=== PATIENT | male | born 1985 ===

== ENCOUNTER 2017-09-19 07:31 | Outpatient (CLI) | payer BC ==
--- NOTE | 2017-09-19 09:09 | XRay Report ---
RIGHT SHOULDER: Pain. Routine views demonstrate normal bony and soft tissue structures with normal joint alignment of the shoulder. IMPRESSION: Normal study.
== END 2017-09-19 07:32 | disposition home or self-care (01) ==
LOC: SPVIMAG 07:31
PROVIDERS: ATTEND Orthopaedic Surgery
DX: M25.511 Pain in right shoulder (principal)

== ENCOUNTER 2017-09-27 23:10 | Emergency (ER) | payer BC | END 2017-09-27 23:30 | disposition left against medical advice (07) | LOC: ED 23:10 | DX: M25.511 Pain in right shoulder (principal); Z53.21 Procedure and treatment not carried out due to patient leaving prior to being seen by health care provider ==

== ENCOUNTER 2020-08-09 03:45 | Emergency (ER) | payer BC, MEDICARE ==
[2020-08-09 03:57] VITALS: BP 140/96
[2020-08-09] MEDS ORDERED: LIDOCAINE (1%) 10 MG/1 ML VIAL 20 ML MDV INFILTRATI ONE (04:01)
--- NOTE | 2020-08-09 04:19 | Emergency Department Report ---
ED Upper Extremity Inj HPI - General Chief Complaint: Extremity Injury, Upper Stated Complaint: DISLOCATED SHOULDER Time Seen by Provider: 08/09/20 03:52 Source: patient, EMS Mode of arrival: Stretcher Limitations: No Limitations - History of Present Illness Initial Comments: Chief complaint: "My shoulder popped out while playing pool." HPI: This is a 34-year-old male with history of recurrent shoulder dislocations who presents with left shoulder pain and obvious dislocation. He states that his shoulder spontaneously dislocates even in his sleep. However this instance occurred while playing pool. He has severe discomfort. He has limited range of motion. No direct trauma. He plans to undergo corrective surgery through [facility]. He recently had a CT and MRI of the shoulder performed. MD Complaint: Injury to:: left, shoulder -: Sudden Other Extremity Injury: Shoulder: Left Handedness: left Place: other (While playing pool) Improves With: none Worsens With: movement of extremity Context: other (History of recurrent spontaneous dislocations of the left shoulder) Associated Symptoms: denies other symptoms - Related Data Allergies Allergy/AdvReac Type Severity Reaction Status Date / Time No Known Allergies Allergy Unverified 08/09/20 03:53 ED Review of Systems ROS: Stated complaint: DISLOCATED SHOULDER Other details as noted in HPI Comment: All other systems reviewed and negative Constitutional: denies: fever, malaise Cardiovascular: denies: chest pain Gastrointestinal: denies: abdominal pain, nausea, vomiting Neurological: denies: numbness, paresthesias ED Past Medical Hx - Past Medical History Previous Medical History?: No - Surgical History Past Surgical History?: No - Social History Smoking Status: Current Every Day Smoker Substance Use Type: Alcohol, Marijuana, Other ED Physical Exam - General Limitations: No Limitations General appearance: alert, in no apparent distress - Head Head exam: Present: atraumatic, normocephalic - Eye Eye exam: Present: normal appearance - ENT ENT exam: Present: mucous membranes moist - Neck Neck exam: Present: normal inspection, full ROM - Respiratory Respiratory exam: Present: normal lung sounds bilaterally. Absent: respiratory distress, wheezes, rales, rhonchi - Cardiovascular Cardiovascular Exam: Present: normal rhythm, tachycardia, normal heart sounds. Absent: systolic murmur, diastolic murmur, rubs, gallop - GI/Abdominal GI/Abdominal exam: Present: soft, normal bowel sounds. Absent: distended, tenderness, guarding, rebound - Rectal Rectal exam: Present: deferred - Expanded Upper Extremity Exam Left Shoulder Exam: Present: deformity, dislocation (Obvious squaring off left shoulder). Absent: tenderness, swelling, abrasion, laceration, ecchymosis Upper Arm exam: Present: normal inspection, full ROM Elbow exam: Present: normal inspection, full ROM Forearm Wrist exam: Present: normal inspection, full ROM Hand Wrist exam: Present: normal inspection Neuro motor exam: Present: wrist extension intact, thumb opposition intact Vascular: Present: normal capillary refill - Back Exam Back exam: Present: normal inspection - Neurological Exam Neurological exam: Present: alert, oriented X3 - Psychiatric Psychiatric exam: Present: normal affect, normal mood - Skin Skin exam: Present: warm, dry, intact, normal color. Absent: rash ED Course Vital Signs 08/09/20 08/09/20 08/09/20 03:51 03:53 03:55 Temperature 98.5 F Pulse Rate 128 H 120 H Respiratory 36 H 27 H Rate Blood Pressure 140/96 140/96 O2 Sat by Pulse 97 98 97 Oximetry - Orthopedic Joint Reduction Joint #1 Consent Obtained: verbal consent Time Out Performed: Yes Side: left Joint Reduction Location: shoulder Analgesia: none (Intra-articular block) Local Anesthetic Used: with Epi Amount of Anesthetic Used (mls): 20 Shoulder Technique Used (if applicable): scapula manipulation, external rotation Post-Reduction Neuro Exam: intact Post-Reduction Vascular Exam: intact Post Reduction X-Ray Obtained: Yes Post Reduction X-Ray Results: reduced Splint Applied: Yes Patient Tolerated Procedure: well Additional Comments: After obtaining verbal consent explaining the risks alternatives benefits, I used Betadine preparation 21-gauge needle 60 cc syringe to inject 20 mL of 1% lidocaine into intra-articular space using landmarks. ED Medical Decision Making - Radiology Data Radiology results: report reviewed, image reviewed *Shoulder radiographs f: Anterior glenohumeral dislocation, postreduction shoulder radiographs revealed adequate reduction. - Medical Decision Making Recurrent shoulder dislocation: Adequately reduced with manipulation after intra-articular injection of lidocaine. Patient referred to his first orthopedic surgeon at the [facility]. Also given referral to our orthopedic surgeon. Shoulder immobilizer was applied by charge nurse to the splint was applied left upper extremity under my supervision. After application the extremity was neurovascularly intact with acceptable alignment. Critical care attestation.: If time is entered above; I have spent that time in minutes in the direct care of this critically ill patient, excluding procedure time. ED Disposition Clinical Impression: Shoulder dislocation, recurrent Disposition: DC-01 TO HOME OR SELFCARE Is pt being admited?: No Does the pt Need Aspirin: No Condition: Stable Referrals: CAM KNAPP MD [Staff Physician] - 3-5 Days
--- NOTE | 2020-08-09 04:36 | XRay Report ---
LEFT SHOULDER 2 VIEWS INDICATION / CLINICAL INFORMATION: shoulder pain hx of dislocation COMPARISON: None available. FINDINGS: BONES / JOINT(S): Subcoracoid dislocation. No fracture identified. SOFT TISSUES: No significant abnormality. ADDITIONAL FINDINGS: None. Signer Name: Carloz Moffett MD Signed: 08/09/2020 4:32 AM Workstation Name: [id number]
--- NOTE | 2020-08-09 05:07 | XRay Report ---
LEFT SHOULDER 3 VIEWS INDICATION / CLINICAL INFORMATION: shoulder reduction COMPARISON: Earlier the same day. FINDINGS: BONES / JOINT(S): Satisfactory projection at the glenohumeral joint. No fracture identified. SOFT TISSUES: No significant abnormality. ADDITIONAL FINDINGS: None. Signer Name: Carloz Moffett MD Signed: 08/09/2020 5:03 AM Workstation Name: [id number]
== END 2020-08-09 05:19 | disposition home or self-care (01) ==
LOC: ED 03:45
DX: M24.412 Recurrent dislocation, left shoulder (principal); F17.200 Nicotine dependence, unspecified, uncomplicated; F12.10 Cannabis abuse, uncomplicated